=== PATIENT | female | born 1975 | race Caucasian/White ===

== ENCOUNTER 2017-07-02 15:36 | Emergency (ER) | payer OTHER ==
[~2017-07-02] VITALS: Ht 165.1 cm; Wt 56.7 kg
[2017-07-02 15:37] VITALS: BP 111/68
--- NOTE | 2017-07-02 15:54 | Emergency Room Report ---
History of Present Illness General Chief Complaint: Syncope Source: Patient Present Illness HPI Patient reports that about a week ago she had some URI symptoms sore throat runny nose Since Sunday she began having increased pain in both of her ears she had made an appointment with her physiotherapy aide going into the elevator patient found herself laying on the floor and realized that she likely had a syncopal episode Called her who called the paramedics At this time patient's main complaint is bilateral ear pain 5 out of 10 Denies any chest pain or shortness of breath She also has a mildly sore throat denies any focal weakness patient takes thyroid medications no change in medications recently Allergies: Coded Allergies: PENICILLINS (Verified Allergy, Unknown, 07/02/17) Patient History Past Medical History: see triage record Pertinent Family History: none Last Menstrual Period: 06/21/17 Now: No Reviewed Nursing Documentation: PMH: Agreed; PSxH: Agreed Nursing Documentation-PMH Past Medical History: No History, Except For Review of Systems All Other Systems: negative except mentioned in HPI Physical Exam Vital Signs Date Time Temp Pulse Resp B/P (MAP) Pulse Ox O2 Delivery O2 Flow Rate FiO2 07/02/17 15:27 97.4 81 16 115/74 99 Room Air 97.3 Sp02 EP Interpretation: reviewed, normal General Appearance: well appearing, no apparent distress Head: normocephalic, atraumatic Eyes: bilateral eye PERRL, bilateral eye EOMI ENT: hearing grossly normal, uvula midline, pharyngeal erythema, other - Bilateral canals are erythematous, tympanic membrane bilaterally also bulging no obvious perforation Neck: full range of motion, supple, no meningismus, no bony tend Respiratory: lungs clear, normal breath sounds, no rhonchi, no respiratory distress, no retraction, no accessory muscle use Cardiovascular #1: normal peripheral pulses, regular rate, rhythm, no edema, no gallop, no JVD, no murmur Gastrointestinal: normal bowel sounds, non tender, soft, no mass, no organomegaly, non-distended, no guarding, no hernia, no pulsatile mass, no rebound Genitourinary: no CVA tenderness Musculoskeletal: normal inspection Neurologic: oriented x3, responsive, supervisor transferring and boxing III-XII nml as tested, motor strength/ tone normal, sensory intact Psychiatric: mood/affect normal Skin: normal color, no rash, warm/dry, palpation normal Lymphatic: normal inspection, no adenopathy Medical Decision Making Diagnostic Impression: Primary Impression: Syncope Additional Impressions: Otitis externa Otitis media ER Course Patient is a fairly complex patient with multiple differential to consideration including but not limited to cardiac cardiopulmonary and vascular emergencies Patient's clinical exam also reveals findings of bilateral otitis externa and media patient's White blood cell count is mildly elevated She was given initial dose of antibiotics here Appears to have had a vasovagal syncope secondary to pain at this time neurologically intact does not meet criteria for acute imaging and will have initial conservative outpatient trial Labs Test 07/02/17 15:55 07/02/17 16:23 White Blood Count 13.9 K/UL (4.8-10.8) Red Blood Count 4.10 M/UL (4.20-5.40) Hemoglobin 13.2 G/DL (12.0-16.0) Hematocrit 37.1 % (37.0-47.0) Mean Corpuscular Volume 90 FL (80-99) Mean Corpuscular Hemoglobin 32.2 PG (27.0-31.0) Mean Corpuscular Hemoglobin Concent 35.6 G/DL (32.0-36.0) Red Cell Distribution Width 10.5 % (11.6-14.8) Platelet Count 217 K/UL (150-450) Mean Platelet Volume 8.7 FL (6.5-10.1) Neutrophils (%) (Auto) 81.6 % (45.0-75.0) Lymphocytes (%) (Auto) 9.6 % (20.0-45.0) Monocytes (%) (Auto) 7.5 % (1.0-10.0) Eosinophils (%) (Auto) 0.4 % (0.0-3.0) Basophils (%) (Auto) 0.8 % (0.0-2.0) Sodium Level 136 MMOL/L (136-145) Potassium Level 3.4 MMOL/L (3.5-5.1) Chloride Level 98 MMOL/L (98-107) Carbon Dioxide Level 26 MMOL/L (21-32) Anion Gap 12 mmol/L (5-15) Blood Urea Nitrogen 12 mg/dL (7-18) Creatinine 0.7 MG/DL (0.55-1.30) Estimat Glomerular Filtration Rate > 60 mL/min (>60) Glucose Level 148 MG/DL (74-106) Calcium Level 8.8 MG/DL (8.5-10.1) Total Bilirubin 0.8 MG/DL (0.2-1.0) Aspartate Amino Transf (AST/SGOT) 12 U/L (15-37) Alanine Aminotransferase (ALT/SGPT) 16 U/L (12-78) Alkaline Phosphatase 65 U/L (46-116) Total Creatine Kinase 51 U/L (26-308) Creatine Kinase MB < 0.5 NG/ML (0.0-3.6) Creatine Kinase MB Relative Index 0.9 Total Protein 8.2 G/DL (6.4-8.2) Albumin 4.0 G/DL (3.4-5.0) Globulin 4.2 g/dL Albumin/Globulin Ratio 1.0 (1.0-2.7) Lipase 82 U/L (73-393) Urine Color Yellow Urine Appearance Clear Urine pH 5 (4.5-8.0) Urine Specific Emma 1.025 (1.005-1.035) Urine Protein 1+ (NEGATIVE) Urine Glucose (UA) Negative (NEGATIVE) Urine Ketones 4+ (NEGATIVE) Urine Occult Blood 2+ (NEGATIVE) Urine Nitrite Negative (NEGATIVE) Urine Bilirubin Negative (NEGATIVE) Urine Urobilinogen Normal MG/DL (0.0-1.0) Urine Leukocyte Esterase 1+ (NEGATIVE) Urine RBC 2-4 /HPF (0 - 2) Urine WBC 2-4 /HPF (0 - 2) Urine Squamous Epithelial Cells Moderate /LPF (NONE/OCC) Urine Amorphous Sediment Few /LPF (NONE) Urine Bacteria Few /HPF (NONE) Urine Yeast Few /HPF (NONE) EKG Diagnostic Results Rate: normal Rhythm: NSR ST Segments: no acute changes Rhythm Strip Diag. Results EP Interpretation: yes Rate: 66 Rhythm: NSR, no PVC's, no ectopy Last Vital Signs Date Time Temp Pulse Resp B/P (MAP) Pulse Ox O2 Delivery O2 Flow Rate FiO2 07/02/17 15:37 97.3 74 16 111/68 99 Room Air 97.3 Status: improved Disposition: HOME, SELF-CARE Condition: Improved Scripts Ibuprofen* (MOTRIN*) 600 Mg Tablet 600 MG ORAL Q8H PRN for For Pain, #20 TAB 0 Refills Prov: Vinny Reid DO 07/02/17 Neomycin/Polymyxin B Sulf/Hc* (CORTISPORIN EAR SOLUTION*) 10 Ml Solution 2 DROP OTIC FOUR TIMES A DAY for 7 Days, #1 EA Instill in affected ear as directed for 7 days Prov: Vinny Reid DO 07/02/17 Clindamycin Hcl (CLINDAMYCIN HCL) 300 Mg Capsule 300 MG ORAL THREE TIMES A DAY, #21 CAP Prov: Vinny Reid DO 07/02/17 Additional Instructions: Patient is provided with the discharge instructions notified to follow up with primary doctor in the next 2-3 days otherwise return to the er with any worsening symptoms. Please note that this report is being documented using [employer] technology. This can lead to erroneous entry secondary to incorrect interpretation by the dictating instrument. Vinny Reid DO Jul 02, 2017 15:54
[2017-07-02] MEDS ORDERED: Ketorolac 30mg Inj IV ONE (16:00)
[2017-07-02 16:28] LABS: ANION GAP 12 mmol/L (5-15); BASOPHILS % (AUTO) 0.8 % (0.0-2.0); BLOOD UREA NITROGEN 12 mg/dL (7-18); CALCIUM 8.8 MG/DL (8.5-10.1); CARBON DIOXIDE 26 MMOL/L (21-32); CHLORIDE 98 MMOL/L (98-107); CREATININE 0.7 MG/DL (0.55-1.30); EOSINOPHILS % (AUTO) 0.4 % (0.0-3.0); HEMATOCRIT 37.1 % (37.0-47.0); HEMOGLOBIN 13.2 G/DL (12.0-16.0); LYMPHOCYTES % (AUTO) 9.6 % (20.0-45.0); MEAN CORPUSCULAR VOLUME 90 FL (80-99); MONOCYTES % (AUTO) 7.5 % (1.0-10.0); NEUTROPHILS % (AUTO) 81.6 % (45.0-75.0); PLATELET COUNT 217 K/UL (150-450); POTASSIUM 3.4 MMOL/L (3.5-5.1); RED CELL DISTRIBUTION WIDTH 10.5 % (11.6-14.8); SODIUM 136 MMOL/L (136-145); WHITE BLOOD COUNT 13.9 K/UL (4.8-10.8)
[2017-07-02 16:41] LABS: ALANINE AMINOTRANSFERASE 16 U/L (12-78); ALKALINE PHOSPHATASE 65 U/L (46-116); ASPARTATE AMINO TRANSFERASE 12 U/L (15-37); BILIRUBIN,TOTAL 0.8 MG/DL (0.2-1.0); CKMB < 0.5 NG/ML (0.0-3.6); CREATINE KINASE 51 U/L (26-308)
[2017-07-02 16:42] LABS: APPEARANCE,URINE CLEAR; BILIRUBIN, URINE NEGATIVE (NEGATIVE); GLUCOSE, URINE (UA) NEGATIVE (NEGATIVE); KETONES,URINE 4+ (NEGATIVE); LEUKOCYTE ESTERASE ,URINE 1+ (NEGATIVE); NITRITE,URINE NEGATIVE (NEGATIVE); PH,URINE 5 (4.5-8.0); PROTEIN,URINE 1+ (NEGATIVE); UROBILINOGEN,URINE NORMAL MG/DL (0.0-1.0)
[2017-07-02 16:43] LABS: COLOR,URINE YELLOW
[2017-07-02] MEDS ORDERED: Morphine Sulfate 4mg/ml Inj IVP ONE (17:00)
[2017-07-02] MEDS ORDERED: Clindamycin 600mg 50 ML IVPB ONE (17:30)
[2017-07-02 17:50] VITALS: BP 112/68
[2017-07-02] MEDS ORDERED: CORTISPORIN EAR10 ML OTIC (17:50)
[2017-07-02] MEDS ORDERED: CLINDAMYCIN HC300 MG ORAL (17:50)
[2017-07-02] MEDS ORDERED: IBUPROFEN600 MG ORAL (17:50)
[2017-07-02 18:05] VITALS: BP 112/68
--- NOTE | 2017-07-03 13:43 | Cardiology Report ---
APPROVED REPORT EKG Measurement Heart [id number] Sinus rhythm with premature atrial complexes with aberrant conduction Otherwise normal ECG
== END 2017-07-02 18:05 | disposition home or self-care (01) ==
LOC: EDBD 15:36 → EMR 16:05
DX: R55 Syncope and collapse (principal); H60.90 Unspecified otitis externa, unspecified ear; H66.90 Otitis media, unspecified, unspecified ear; Z88.0 Allergy status to penicillin
CPT/HCPCS: 36415; 80053; 81003; 82550; 82553; 83690; 85025; 87086; 93005; 96374; 96375; 99284; J1885; J2270; J2405; S0077